=== PATIENT | male | born 1990 | race Hispanic/Latino ===

== ENCOUNTER 2017-07-20 10:44 | Emergency (ER) | payer BC ==
[2017-07-20 11:12] VITALS: BP 133/84; PULSE 70; RESP 15; TEMP 99.2; O2SAT 97
--- NOTE | 2017-07-20 11:53 | ED PDOC ---
Lower Extremity Pain/Injury Time Seen by Provider: 07/20/17 11:50 Chief Complaint (Nursing): Lower Extremity Problem/Injury Chief Complaint (Provider): KNEE PAIN History Per: Patient (26 Y/O MALE HERE FOR EVALUATION OF RIGHT KNEE INJURY THAT OCCURRED WHEN HE LANDED ON KNEE WHILE PLAYING BASKETBALL YESTERDAY. NOTED KNEE PAIN AT THAT TIME WORSE THIS MORNING. CONCERNED HE HAS INJURED ACL.) Past Medical History Reviewed: Historical Data, Nursing Documentation, Vital Signs Vital Signs: Last Vital Signs Temp 99.2 F 07/20/17 11:06 Pulse 70 07/20/17 11:06 Resp 15 07/20/17 11:06 BP 133/84 07/20/17 11:06 Pulse Ox 97 07/20/17 11:06 - Family History Family History: States: No Known Family Hx - Home Medications Home Medications: Ambulatory Orders Medication Instructions Recorded Naproxen 375 mg PO Q8 PRN #21 tablet 07/20/17 - Allergies Allergies/Adverse Reactions: Allergies Allergy/AdvReac Type Severity Reaction Status Date / Time peanut Allergy ANAPHYLAXIS Verified 07/20/17 11:10 Review of Systems ROS Statement: Except As Marked, All Systems Reviewed And Found Negative Musculoskeletal: Positive for: Other (KNEE PAIN) Physical Exam - Reviewed Nursing Documentation Reviewed: Yes Vital Signs Reviewed: Yes - Physical Exam Appears: Positive for: Well, Non-toxic, No Acute Distress Head Exam: Positive for: ATRAUMATIC, NORMAL INSPECTION, NORMOCEPHALIC Skin: Positive for: Normal Color, Warm, DRY Eye Exam: Positive for: EOMI, Normal appearance, PERRL ENT: Positive for: Normal ENT Inspection Neck: Positive for: Normal, Painless ROM Cardiovascular/Chest: Positive for: Regular Rate, Rhythm Respiratory: Positive for: CNT, Normal Breath Sounds Gastrointestinal/Abdominal: Positive for: Normal Exam, Soft Back: Positive for: Normal Inspection Extremity: Positive for: Normal ROM, Other (MILD EFFUSION NOTED. TENDERNESS NOTED POSTERIOR KNEE.) Neurologic/Psych: Positive for: Alert, Oriented - ECG O2 Sat by Pulse Oximetry: 97 - Progress ED Course And Treament: XRY OF KNEE: SMALL SUPRAPATELLAR EFFUSION GIVEN CRUTCH INSTRUCTIONS AND KNEE IMMOBILIZER. PATIENT HAS CONTACTED AN ORTHOPEDIST AND IS AWAITING APPOINTMENT . Disposition - Clinical Impression Clinical Impression: Knee injury - Patient ED Disposition Is Patient to be Admitted: No - Disposition Referrals: Yony Pa III, MD [Staff Provider] - Disposition: Routine/Home Disposition Time: 12:15 Condition: FAIR Prescriptions: Naproxen 375 mg PO Q8 PRN #21 tablet PRN Reason: Pain, Moderate (4-7) Instructions: Knee Sprain (DC) Forms: [facility] ([place]), [facility] ED School/Work Excuse
--- NOTE | 2017-07-20 12:13 | RAD ---
PROCEDURE: Right Knee Radiographs. HISTORY: Pain COMPARISON: None. FINDINGS: BONES: Bone alignment and mineralization are normal. There is no acute displaced fracture or bone destruction. JOINTS: Normal. No osteoarthritis. JOINT EFFUSION: There is a small suprapatellar joint effusion. OTHER FINDINGS: None. IMPRESSION: No acute fracture or dislocation. Small suprapatellar joint effusion.
== END 2017-07-20 12:45 | disposition home or self-care (01) ==
LOC: H.ER 10:44
DX: S89.91XA Unspecified injury of right lower leg, initial encounter (principal); W19.XXXA Unspecified fall, initial encounter; Y92.310 Basketball court as the place of occurrence of the external cause
CPT/HCPCS: 29530; 73562; 99284; L1830